=== PATIENT | male | born 1980 | race Caucasian/White ===

== ENCOUNTER 2016-12-09 18:38 | Emergency (ER) | payer SELFPAY ==
--- NOTE | ~2016-12-09 | EKG ---
PATIENT: ESTRADA WHALEY UNIT #: [id number] Ventricular Rate: 92 BPM Atrial Rate: 92 BPM P-R Interval: 124 ms QRS Duration: 92 ms Q-T Interval: 342 ms QTC Calculation(Bezet): 422 ms P [place]: 36 degrees Calculated R [place]: 57 degrees Calculated T [place]: 29 degrees Diagnosis Line: Normal sinus rhythm Diagnosis Line: Normal ECG Diagnosis Line: When compared with ECG of 02-AUG-2016 04:42, Diagnosis Line: No significant change was found Diagnosis Line: Confirmed by NGA BULLOCK MD ([id number]) on Diagnosis Line: 12/13/2016 1:25:36 PM INTERPRETING MD: ARA LUNSFORD
[~2016-12-09 18:38] MED LIST: AUGMENTIN PO; CLEOCIN PO; DICLOFENAC PO; DOLOBID500 MG PO; IBUPROFEN PO; KETOPROFEN PO; OCEAN45 ML; PEN-VEE K PO; PERCOCET5/325 PO; SUDAFED PO; TAMIFLU75 MG PO; ULTRAM PO; VICODIN 5/500 T1 TAB PO; ZITHROMAX PO; ZYVOX PO
[2016-12-10 04:10] LABS: BASOPHIL# 0.1 X10e3 (0-0.3); BASOPHIL% 0.9 % (0-2.5); DIFF IND NO; EOSINOPHIL# 0.4 X10e3 (0-0.7); EOSINOPHIL% 5.4 % (0.0-7.0); HEMATOCRIT 45.6 % (38.0-50.0); HEMOGLOBIN 15.3 gm/dL (13.0-16.0); LYMPHOCYTE# 1.1 X10e3 (1.0-3.5); LYMPHOCYTE% 14.6 % (17.0-45.0); MEAN CELL VOLUME 88.9 FL (83-96); MEAN CORPUSCULAR HEMOGLOBIN 29.9 PG (28-34); MEAN CORPUSCULAR HGB CONC 33.6 g/dL (30-36); MEAN PLATELET VOLUME 9.2 FL (6.5-11.5); MONOCYTE# 0.6 X10e3 (0-1.0); MONOCYTE% 8.1 % (3.0-12.0); NEUTROPHIL# 5.5 X10e3 (1.5-7.1); PLATELET COUNT 218 X10e3 (140-420); RED BLOOD COUNT 5.13 X10e (3.90-5.60); RED CELL DISTRIBUTION WIDTH 12.9 % (11.0-15.5); WHITE BLOOD COUNT 7.8 X10e3 (4.0-10.5)
[2016-12-10 04:12] LABS: ALBUMIN SERUM 4.2 g/dL (3.5-5.0); BILIRUBIN,TOTAL 0.2 mg/dL (0.2-2.0); CALCIUM SERUM 9.1 mg/dL (8.4-10.2); GLOM FILT RATE Estimated 95.7 mL/min (>60); PROTEIN TOTAL SERUM 7.1 g/dL (6.0-8.3)
[2016-12-10 10:30] LABS: POC - CKMB 1.2 ng/mL (0.0-7.9); POC - TROPONIN <0.05 ng/mL (<=0.05)
== END 2016-12-09 18:41 | disposition home or self-care (01) ==
LOC: SED 18:38
PROVIDERS: Emergency Medicine
DX: M94.0 Chondrocostal junction syndrome [Tietze] (principal)
CPT/HCPCS: 80053; 82553; 84484; 85025; 93005; 96374; 96375; 99284; J1885; J2405

== ENCOUNTER 2017-02-24 17:04 | Emergency (ER) | payer OTHER ==
[~2017-02-24] VITALS: Ht 177.8 cm; Wt 65.8 kg
== END 2017-02-24 19:40 | disposition home or self-care (01) ==
LOC: CED 17:04
DX: M79.652 Pain in left thigh (principal); M79.651 Pain in right thigh; I10 Essential (primary) hypertension
CPT/HCPCS: 99283